=== PATIENT | female | born 1990 | race Caucasian/White ===

== ENCOUNTER 2024-04-13 07:41 | Day surgery (SDC) | payer MEDICAID, SELFPAY ==
--- NOTE | 2024-04-12 23:39 | W.PM.OPSFHP ---
Same Day Surgery H&P Indication for Procedure/HPI DATE OF PROCEDURE: April 13, 2024 CHIEF COMPLAINT/INDICATIONFOR SURGICAL PROCEDURE: desires permanent sterilization PREOP DIAGNOSIS: desires permanent sterilization PLANNED PROCEDURE: Operation Date: 04/13/24 09:10 Proposed Procedures p Laparoscopic bilateral partial salpingectomy 70575, Z30.2(Bilateral) - Malick Yee MD 32 y.o. SA2 Desires permanent sterilization Medications/Allergies* Home Medications Medication Instructions Recorded Confirmed Type No Known Home Medications 12/09/22 04/12/24 History Allergies/Adverse Reactions Allergy/AdvReac Type Severity Reaction Status Date / Time No Known Allergies Allergy Verified 04/12/24 11:50 Pertinent History/Comorbid Conditions* Medical History (Updated 02/03/24 @ 18:11 by Malick Yee MD) No pertinent past medical history neghx:htn,dm,thyroid,dvt/pe PCP: Magali Weaver Surgical History (Updated 12/13/23 @ 09:34 by Felix Bass DO) H/O umbilical hernia repair Family History (Updated 12/09/22 @ 13:05 by Rocky Hyman) Diabetes Father Denies family history of Colon cancer Ovarian cancer Heart disease Hyperlipidemia Breast cancer Hypertension Uterine cancer Thyroid disease Stroke Social History Smoking and tobacco/nicotine status: current every day tobacco/nicotine user Pertinent Exam Findings alert, oriented x 3, clear to auscultation bilaterally and regular rate & rhythm Recommendations Surgery/Procedure today Coding Level of Care Code Acute Code for Chg Fwd Time Spent (min) 20
[2024-04-13] VITALS (13 sets, daily range): BP systolic 104–139; BP diastolic 61–85; PULSE 59–78; RESP 15–17; TEMP 36.3–37.1; O2SAT 99–100; BMI 25.3
[2024-04-13] MEDS: scopolamine 1.5 Patch 1 PATCH TRANSDERMA (08:10)
[2024-04-13] MEDS: sodium chloride 0.9% 1,000 ML 30 ML IV (08:10)
--- NOTE | 2024-04-13 08:36 | W.PM.OPSUD ---
Surgery/Procedure H&P Update DATE OF PROCEDURE: April 13, 2024 DATE H&P PERFORMED: 04/12/24 H&P UPDATE INFORMATION: I have reviewed H&P completed within last 30 days, I have examined patient prior to procedure and No changes to prior documentation PREOP DIAGNOSIS: desires permanent sterilization PLANNED PROCEDURE: Operation Date: 04/13/24 09:10 Proposed Procedures p Laparoscopic bilateral partial salpingectomy 83342, Z30.2(Bilateral) - Malick Yee MD
--- NOTE | 2024-04-13 08:51 | ANES.PREANE2 ---
Pre-Anesthetic Assessment Height/Weight: Height 1.6 m Weight 64.864 kg Temp Pulse Resp BP Pulse Ox O2 Del Method 98.8 F 78 16 139/85 100 Room Air 04/13/24 08:28 04/13/24 08:28 04/13/24 08:28 04/13/24 08:28 04/13/24 08:28 04/13/24 08:30 Preop Diagnosis: desires permanent sterilization Operation Date: 04/13/24 09:10 Proposed Procedures p Laparoscopic bilateral partial salpingectomy 55685, Z30.2(Bilateral) - Malick Yee MD Familial anesthetic complications: None Was Beta Luis E taken within 24 hours: N/A Was Clonidine taken within 24 hours: N/A Last intake: Intake Last Liquid Date 04/12/24 Last Liquid Time 22:00 Last Solid Date 04/12/24 Last Solid Time 18:00 Social Tobacco and No alcohol Exam alert, oriented x 3, clear to auscultation bilaterally and regular rate & rhythm Airway Mallampati: Class II Dentition: full Anesthetic Plan ASA status: 1 Anesthesia: General Risk of > 500 ml blood loss (7ml/kg in children): No Medications/Allergies Home Medications Medication Instructions Recorded Confirmed Last Taken Type No Known Home Medications 12/09/22 04/13/24 Unknown History Allergies Allergy/AdvReac Type Severity Reaction Status Date / Time No Known Allergies Allergy Verified 04/13/24 07:52 Current Medications Generic Name Dose Route Start Last Admin Trade Name Freq PRN Reason Stop Dose Admin Sodium Chloride 1,000 mls @ 30 mls/hr 04/13/24 08:00 04/13/24 08:10 Sodium Chloride 0.9% IV 04/14/24 07:59 30 mls/hr .Q24H BRENDA Administration PFSH Anesthesia Medical History No pertinent past medical history neghx:htn,dm,thyroid,dvt/pe PCP: Magali Weaver Surgical History H/O umbilical hernia repair Family History Father Diabetes Denies family history of Colon cancer Ovarian cancer Heart disease Hyperlipidemia Breast cancer Hypertension Uterine cancer Thyroid disease Stroke Social History Smoking and tobacco/nicotine status: current every day tobacco/nicotine user Female Reproductive History Date of last menstrual period: 03/27/24 Data Anesthesia Cardiac Studies: No Data to Display
--- NOTE | 2024-04-13 10:45 | P.OP_ITS ---
Operative Report Date of procedure: April 13, 2024 Pre-op diagnosis: desires permanent sterilization Post-op diagnosis: same Post-op findings: normal uterus, tubes, and ovaries Procedure done: laparoscopic bilateral partial salpingectomy Implants: none Specimens removed/disposition: bilateral partial fallopian tube segments Surgeon: Malick Yee MD Anesthesia: General Estimated blood loss (mL): 5 Complications: none Findings: normal uterus, tubes, and ovaries Brief History: 34 y.o. desires permanent sterilization Procedure: Informed consent was obtained. The patient was taken to the OR and placed on the table. General endotracheal anesthesia was induced. The abdomen and perineum were then prepped and draped in the usual fashion. A 5 mm subumbilical skin incision was made. A 5 mm trocar with sheath was then inserted into the peritoneal cavity under direct visualization with the laparoscope. After confirming intraperitoneal position, pneumoperitoneum was achieved. Two separate 5 mm incisions were made in the right and left mid-quadrants. 5 mm trocars with sheaths were then inserted into the peritoneal cavity under direct visualization with the laparoscope. The right fallopian tube was then identified to its fimbrial end. Starting at the fimbrial end, the mesosalpinx was then coagulated and cut using the Endoseal. A 4-5 cm portion of the right fallopian tube was excised and removed via one of the ports. This was sent to pathology. There was no bleeding seen. Similarly, the left fallopian tube was identified to its fimbrial end. A 4-5 cm portion of the left fallopian tube was excised and removed, sent to pathology. There was no bleeding. All instruments were then removed from the peritoneal cavity after the pneumoperitoneum was allowed to escape. The skin incisions were closed using 3- O chromic in subcuticular fashion. Dermabond was applied. The patient was then placed supine and awakened, taken the the PACU in good condition. Postop condition: stable EBL: 5 cc Complications: none Sponge, needles, and instruments counts correct x two
[2024-04-13 11:34] LABS: OR HCG Qualitative Urine Negative (Negative)
--- NOTE | 2024-04-13 11:55 | ANE.PACU2 ---
Inpatient post-anesthesia follow up: Airway intact: Yes Vital signs: Temperature 97.4 F Pulse Rate 63 Respiratory Rate 16 Blood Pressure 109/67 Pulse Oximetry 100 Oxygen Delivery Me thod Room Air Oxygen Flow Rate 6 Fraction of Inspir ed Oxygen Hydration adequate: Yes Nausea and vomiting: No Pain level: 1 Mental status: Baseline
== END 2024-04-13 11:56 | disposition home or self-care (01) ==
PROVIDERS: Visit Provider Obstetrics & Gynecology
PROC: (CPT 58661; principal; 2024-04-13 09:00)
DX: Z30.2 Encounter for sterilization (principal); F17.200 Nicotine dependence, unspecified, uncomplicated
CPT/HCPCS: 58661; 81025; 88302; J0131; J1100; J1171; J1885; J2250; J2405; J2704; J3010; J3490; J7030